=== PATIENT | male | born 1940 | race Caucasian/White ===

== ENCOUNTER 2016-09-20 07:05 | Inpatient (IN) ==
[2016-09-20] MEDS ORDERED: 0.9 % Sodium Chloride 500 ML IVC ONE ×2 (07:30→14:23)
[2016-09-20] MEDS ORDERED: *HR* Metoprolol 5 MG/5 ML VIAL IVP ONE (07:30)
--- NOTE | 2016-09-20 07:31 | Emergency Department Note ---
Disposition Clinical Impression: Atrial fibrillation with rapid ventricular response, Supratherapeutic INR Disposition: Admitted As Inpatient Condition: Good Referrals: Kevon Hussein DO [Primary Care Provider] - Forms: ED Satisfaction Letter Time of Disposition: 09:35 General Adult HPI - General Chief complaint: ED Shortness of Breath/Dyspnea Stated complaint: SOB,dizzy,fingers tingling,chills Time Seen by Provider: 09/20/16 07:11 Source: patient, family () Mode of arrival: ambulatory Limitations: no limitations Nursing Notes Reviewed: Yes Vital Signs Reviewed: Yes - History of Present Illness HPI Narrative: 76-year-old male history of atrial fibrillation on Coumadin, CABG 2006, hypertension, diabetes, hyperlipidemia presents to the ED for shortness of breath. Patient initially presented last night with for similar symptoms of lightheadedness and difficulty catching his breath. They came here to be evaluated by along the way symptoms resolved and they went home without any evaluation. Once I got home while laying in bed symptoms returned shortness of breath with diaphoresis and nausea. He denies any chest pain or pressure. Denies any racing of the heart. Denies any fever, recent illness, cough, abdominal pain. His general education instructor is Dr. Grabiel Cole. Note recent changes to medications. He takes sotalol for his atrial fibrillation. He recently needed to take magnesium for supplementation. His last INR was 2.5. Pain Scale: 0 - Related Data Home Medications Medication Instructions Recorded Confirmed Aspirin [Lo-Dose Aspirin EC] 81 mg PO DAILY 09/20/16 09/20/16 Lisinopril [Zestril] 20 mg PO DAILY 09/20/16 09/20/16 Lovastatin 40 mg PO DAILY 09/20/16 09/20/16 Magnesium Oxide [Mgo] 400 mg PO BID 09/20/16 09/20/16 Nitroglycerin [Nitrostat] 0.4 mg SL AD PRN 09/20/16 09/20/16 Ranitidine HCl [Zantac] 300 mg PO DAILY 09/20/16 09/20/16 Sotalol [Betapace] 40 mg PO BID 09/20/16 09/20/16 Warfarin [Coumadin] 2 mg PO HS 09/20/16 09/20/16 Allergies Allergy/AdvReac Type Severity Reaction Status Date / Time No Known Allergies Allergy Verified 09/20/16 07:09 All systems ED: reviewed and negative except as stated. Constitutional: Denies: fever, chills Cardiovascular: Reports: dyspnea on exertion. Denies: chest pain, palpitations Respiratory: Reports: dyspnea. Denies: cough Gastrointestinal: Reports: nausea. Denies: abdominal pain, vomiting, diarrhea Genitourinary: Denies: urgency, dysuria Musculoskeletal: Denies: back pain, neck pain Integumentary: Denies: rash, abrasion Neurological: Denies: headache, weakness, vertigo Past Medical History - Past Medical History Attestation: Yes The following information was validated with the patient. Source: patient Medical history: Reports: atrial fibrillation, coronary artery disease, diabetes , hypertension - Social History Smoking Status: Never smoker Smokeless Tobacco Status: No Alcohol use: Reports: none Drug use: Reports: none Physical Exam - General Limitations: no limitations General appearance: alert, in no apparent distress, obese - Head Head exam: atraumatic, normocephalic, normal inspection - Eye Eye exam: Present: normal appearance, PERRL, EOMI - ENT ENT exam: normal exam, normal oropharynx, mucous membranes moist - Neck Neck exam: Present: normal inspection, full ROM, trachea midline. Absent: tenderness - Chest Chest inspection: Present: normal inspection, symmetric chest wall rise. Absent : tenderness - Respiratory Respiratory exam: Present: normal lung sounds bilaterally. Absent: respiratory distress, wheezes - Cardiovascular Cardiovascular exam: Present: regular rate, normal rhythm, normal heart sounds. Absent: systolic murmur, diastolic murmur - Abdominal Exam Abdominal exam: Present: soft (obese), Non-Tender, normal bowel sounds. Absent : tenderness, distention, guarding, rebound, rigidity - Extremities Exam Extremities exam: Present: normal inspection, full ROM, pedal edema (+1 symmetrical). Absent: tenderness - Back Exam Back exam: Present: normal inspection, full ROM. Absent: tenderness - Neurological Exam Neurological exam: Present: alert, oriented X3 - Psychiatric Psychiatric exam: Present: normal affect, normal mood - Skin Skin exam: Present: warm, dry, intact, normal color Course Course Narrative: 76-year-old male presents with dyspnea. On EKG he is in atrial flutter with rapid ventricular response. His last blood pressure 101/68. Will attempt to break control with Lopressor 5 mg. Also give bolus of 500 mL normal saline. Last echo performed 08/01 had poor windows but good LV systolic function. He does not appear in no acute heart failure. Will plan to admit once rate has been controlled. Patient is in agreement with this plan. - Reevaluation(s) Reevaluation #1: After one dose of Lopressor, patient has responded well with heart rate down to 110s. He has a mild KELSEA with elevated creatinine 1.5. His INR supratherapeutic 3.4. Troponin negative. Magnesium is WNL. Other labs are unremarkable. BP remains stable 110/64 after bolus of fluids. Chest x-ray does not reveal any acute cardiopulmonary process or evidence of heart failure. Will continue to observe and likely admit to medicine. Time: 08:30 Reevaluation #2: Continues to be in atrial fibrillation with a heart rate 105. Plan to admit to medicine. Patient is in agreement with this plan. Time: 09:31 - Consultations Consultation #1: Spoke with on-call hospitalist randi Kwon to admit for atrial fibrillation c RVR and supratherapeutic INR. No further orders at this time Time: 10:05 Vital Signs Temperature 97.7 F 09/20/16 07:06 Pulse Rate 91 09/20/16 07:06 Respiratory Rate 20 09/20/16 07:06 Blood Pressure 87/57 09/20/16 07:06 O2 Sat by Pulse Oximetry 98 09/20/16 07:06 Temperature 97.7 F 09/20/16 07:06 Pulse Rate 105 09/20/16 09:27 Respiratory Rate 18 09/20/16 09:27 Blood Pressure 108/87 09/20/16 09:27 O2 Sat by Pulse Oximetry 94 09/20/16 09:27 Oxygen Delivery Oxygen Delivery Room Air Medical Decision Making - Medical Records Medical records reviewed: Yes I reviewed the patient's medical records. - Lab Data Lab results reviewed: Yes I reviewed the patient's lab results. Result diagrams: 09/20/16 07:17 09/20/16 07:17 Lab Results 09/20/16 09/20/16 09/20/16 Range/Units 07:17 07:17 07:17 WBC 9.7 (4.3-11.1) K/mcL RBC 6.01 H (4.19-5.50) M/mcL Hgb 17.9 H (12.9-16.9) g/dL Hct 52.9 H (37.5-50.1) % MCV 88.0 (83.0-100.0) fL MCH 29.8 (28.0-33.3) pg MCHC 33.8 (31.6-35.5) g/dL RDW 13.9 (11.5-14.5) % Plt Count 188 (140-400) K/mcL MPV 11.0 (9.4-12.4) fL Immature Gran % 1.3 (0-4) % Seg Neutrophils % 74.3 % Lymphocytes % 12.9 % Monocytes % 8.1 % Eosinophils % 2.7 % Basophils % 0.7 % Neutrophils # 7.2 (1.6-8.9) K/mcL Lymphocytes # 1.3 (0.6-4.6) K/mcL Monocytes # 0.8 (0.0-1.3) K/mcL Eosinophils # 0.3 (0.0-0.6) K/mcL Basophils # 0.1 (0.0-0.2) K/mcL PT (9.4-12.1) Seconds INR Sodium 135 L (136-145) mEq/L Potassium 4.5 (3.5-4.5) mEq/L Chloride 102 (98-109) mEq/L Carbon Dioxide 23 (19-29) mEq/L BUN 25 (8-26) mg/dL Creatinine 1.50 H (0.72-1.25) mg/dL Est GFR ( Amer) 55 L (> 60) Est GFR (Non-Af Amer) 46 L (> 60) BUN/Creatinine Ratio 17 (6-26) Glucose 163 H (70-99) mg/dL Calculated Osmolality 288 (280-300) Calcium 9.3 (8.6-10.8) mg/dL Magnesium 1.7 (1.6-2.6) mg/dL Troponin I 0.01 (0-0.03) ng/mL B-Natriuretic Peptide (0-100) pg/mL 09/20/16 09/20/16 Range/Units 07:17 07:17 WBC (4.3-11.1) K/mcL RBC (4.19-5.50) M/mcL Hgb (12.9-16.9) g/dL Hct (37.5-50.1) % MCV (83.0-100.0) fL MCH (28.0-33.3) pg MCHC (31.6-35.5) g/dL RDW (11.5-14.5) % Plt Count (140-400) K/mcL MPV (9.4-12.4) fL Immature Gran % (0-4) % Seg Neutrophils % % Lymphocytes % % Monocytes % % Eosinophils % % Basophils % % Neutrophils # (1.6-8.9) K/mcL Lymphocytes # (0.6-4.6) K/mcL Monocytes # (0.0-1.3) K/mcL Eosinophils # (0.0-0.6) K/mcL Basophils # (0.0-0.2) K/mcL PT 37.8 H (9.4-12.1) Seconds INR 3.4 Sodium (136-145) mEq/L Potassium (3.5-4.5) mEq/L Chloride (98-109) mEq/L Carbon Dioxide (19-29) mEq/L BUN (8-26) mg/dL Creatinine (0.72-1.25) mg/dL Est GFR ( Amer) (> 60) Est GFR (Non-Af Amer) (> 60) BUN/Creatinine Ratio (6-26) Glucose (70-99) mg/dL Calculated Osmolality (280-300) Calcium (8.6-10.8) mg/dL Magnesium (1.6-2.6) mg/dL Troponin I (0-0.03) ng/mL B-Natriuretic Peptide 120 H (0-100) pg/mL - Radiology Data Radiology results reviewed: Yes I reviewed the patient's radiology results. Chest X-Ray 09/20/16 07:18 IMPRESSION: No acute cardiopulmonary abnormality detected. D/ / Zuhair Reyes MD / Zuhair Reyes MD Interpreting Provider: Zuhair Reyes MD - EKG Data EKG #1 EKG attestation: Yes I reviewed and interpreted this EKG. EKG results narrative: EKG performed 0717 atrial flutter tachycardia with rapid ventricular response [address] depressions likely secondary to rate. Compared to old EKG performed 07/23/2016 shows sinus bradycardia 58 bpm
--- NOTE | 2016-09-20 07:41 | Emergency Department Note ---
START Narrative - START START: I examined this patient and my medical decision-making was reviewed with the PROGRAMS DIRECTOR/PA/Advanced Practice Nurse/Resident Physician. I agree with the documented findings, disposition and treatment plan as described except to the extent set forth below. ED attending note: Patient seen with emergency medicine resident Dr. ABBOTT. Please see a copy of his note for details of the H&P, evaluation, management and disposition of this patient. We independently had [id number] contact with the patient Briefly: 76-year-old male history of atrial dysrhythmias hypertension among other things presents with shortness of breath weakness and chest discomfort. Had an episode yesterday resolved in route to the hospital and turned back and went home. This morning with the symptoms. EKG shows an atrial tachydysrhythmias about 160 bpm possibly A. fib with RVR. Patient's lungs are clear heart trace edema. Patient will get troponin chemical rate control with Lopressor and chest x-ray other screening labs and admission anticipated. Provided 30 minutes of critical care services for this patient.
[2016-09-20 08:01] LABS: Calcium 9.3 mg/dL (8.6-10.8); Magnesium 1.7 mg/dL (1.6-2.6); Potassium 4.5 mEq/L (3.5-4.5)
[2016-09-20 08:02] LABS: INR 3.4; Prothrombin Time 37.8 Seconds (9.4-12.1)
[2016-09-20 08:12] LABS: Basophils # 0.1 K/mcL (0.0-0.2); Basophils % 0.7 %; Eosinophils # 0.3 K/mcL (0.0-0.6); Eosinophils % 2.7 %; Hematocrit 52.9 % (37.5-50.1); Hemoglobin 17.9 g/dL (12.9-16.9); Immature Granulocytes % 1.3 % (0-4); Lymphocytes # 1.3 K/mcL (0.6-4.6); Lymphocytes % 12.9 %; Mean Corpuscular HGB Conc 33.8 g/dL (31.6-35.5); Mean Corpuscular Hemoglobin 29.8 pg (28.0-33.3); Monocytes # 0.8 K/mcL (0.0-1.3); Monocytes % 8.1 %; Neutrophils # 7.2 K/mcL (1.6-8.9); Platelet Count 188 K/mcL (140-400); Red Blood Count 6.01 M/mcL (4.19-5.50); Red Cell Distribution Width 13.9 % (11.5-14.5); Segmented Neutrophils % 74.3 %
--- NOTE | 2016-09-20 12:52 | Electrocardiograph Report ---
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
[2016-09-20] MEDS ORDERED: Naloxone 0.4 MG/ML INJ IVP PRN (12:55)
[2016-09-20] MEDS ORDERED: Acetaminophen 325 MG TABLET PO PRN (13:00)
[2016-09-20] MEDS ORDERED: Nitroglycerin 0.4 MG TAB.SUBL SL PRN (13:02)
--- NOTE | 2016-09-20 13:07 | Internal Med History&Physical ---
Date of Encounter: 09/20/16 Time of Encounter: 13:07 Assessment and Plan (1) Atrial flutter with rapid ventricular response Current visit: Yes Status: Acute 1 patient presented with shortness of breath lightheadedness and diaphoresis. He was in atrial flutter RVR. Patient has past history A. fib A flutter he underwent a ablation in 2011 and is currently on sotalol and Coumadin. Patient was given IV fluids as well as Lopressor and Cardizem his heart rate came down to 90s. Continue cardiac monitoring 2 continue with sotalol monitor QTC presently QTC 343-EKG every a.m. 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 2 2012 [facility] with left main 95%, 20% mid circumflex, SVG to OM1 20% proximal stenosis, 20% mid RCA, SAINI to LAD patent, 3 cardiac troponins are negative we will continue to cycle 4 NT with beta roshan aspirin and statin Qualifiers: Coronary Disease-Associated Artery/Lesion type: [place] artery [place] vs. transplanted heart: [place] heart Associated angina: without angina Qualified Code(s): I25.10 - Atherosclerotic heart disease of [place] coronary artery without angina pectoris (5) DVT prophylaxis Current visit: Yes Status: Acute On Coumadin Internal Medicine - H&P: HPI Chief complaint: sob Admitted From: Emergency Dept Plans for Post Hospital Care: Home History of present illness: Mr. Shell is a 76 year old male past medical history of atrial fib atrial flutter coronary disease diabetes hypertension CABG. 4 patient last approximate LMP end he began to experience increasing shortness of breath nausea or lightheadedness. He states he was camping he decided to have his take him home once he arrived he was feeling better. This morning patient awoke and again experienced shortness of breath lightheaded nausea. He denies any chest pain or palpitations. He was taken to the hospital for evaluation. Upon arrival to the ER it was noted patient's heart rate was 160. The atrial flutter lab work did reveal some AK I1.5 his INR is 3.4 blood pressure was 87/ 57 on presentation he was given fluid bolus and 5 mg of labetalol which did slow his rate. His heart rate decreased back up and he received 20 of Cardizem IV push again bring his heart rate back down to the 90s. Chest x-ray with no acute process troponin was negative he was admitted for further workup and evaluation. Presently patient denies any chest pain shortness of breath nausea or palpitations. He is atrial flutter on the monitor ranging 90s to 100s. His lung sounds are clear heart sounds are irregular S1-S2 with no rubs clicks Murmurs Noted He Has Slight Pedal EdemaBilaterally. He Is Hemodynamically Stable This Time I Reviewed This Case with Dr. Calloway who agrees with plan. Past Med Surg Social Fam HX - Past Medical History Medical history: atrial fibrillation, coronary artery disease, diabetes, hypertension Psychiatric history: no psych history - Past Surgical History Surgical History: coronary bypass (CABG) - Social History Smoking Status: Never smoker Smokeless Tobacco Status: No Alcohol use: none Drug use: none - Family History Mother History Unknown: Yes Internal Medicine - H&P: Meds Aspirin [Lo-Dose Aspirin EC] 81 mg PO DAILY 09/20/16 [History] Lisinopril [Zestril] 20 mg PO DAILY 09/20/16 [History] Lovastatin 40 mg PO DAILY 09/20/16 [History] Magnesium Oxide [Mgo] 400 mg PO BID 09/20/16 [History] Nitroglycerin [Nitrostat] 0.4 mg SL AD PRN 09/20/16 [History] Ranitidine HCl [Zantac] 300 mg PO DAILY 09/20/16 [History] Sotalol [Betapace] 40 mg PO BID 09/20/16 [History] Warfarin [Coumadin] 2 mg PO HS 09/20/16 [History] Allergies No Known Allergies Allergy (Verified 09/20/16 07:09) All Systems PM: A 10-system review of systems was performed and is negative for pertinent findings except as documented above in the HPI. - Constitutional Constitutional: no chills, no fever(s), no night sweats - EENT Eyes: no change in vision, no discharge, no pain, no photophobia Ears: no ear discharge, no ear pain, no tinnitus Nose, mouth and throat: no dysphagia, no nasal discharge, no neck pain, no sore throat - Cardiovascular Cardiovascular ROS IM: diaphoresis, dyspnea, lightheadedness, no chest pain, no palpitations, no syncope - Respiratory Respiratory: as per HPI, dyspnea on exertion - Gastrointestinal Gastrointestinal: nausea, no abdominal pain, no diarrhea, no hematemesis, no hematochezia, no melena, no vomiting - Musculoskeletal Musculoskeletal ROS IM: no numbness, no tingling - Integumentary Integumentary IM: no rash, no unusual bruising - Neurological Neurological ROS: no confusion, no convulsions, no focal weakness, no numbness, no tingling, no tremor(s) - Hematologic/Lymphatic Hematologic/Lymphatic: no easy bruising - Constitutional Vitals: Temp Pulse Resp BP Pulse Ox 97.1 F L 97 18 121/75 94 09/20/16 10:34 09/20/16 10:34 09/20/16 10:34 09/20/16 10:34 09/20/16 10:34 General appearance: Present: A&O X 3, answers questions appropriately - Head Head exam: Present: atraumatic, normocephalic - Eye Eye exam: Present: PERRL, conjuntiva pink, sclera anicteric Pupils: Present: PERRL - Neck Neck exam general surgery: Present: supple, trachea midline. Absent: lymphadenopathy - Respiratory Respiratory exam: Present: CTAB. Absent: accessory muscle use, rales, rhonchi, wheezes - Cardiovascular Cardiovascular exam: Present: irregular rhythm, +S1, +S2. Absent: diastolic murmur, gallop, rubs, systolic murmur - GI/Abdominal GI/Abdominal exam: Present: normal bowel sounds, soft, no peritoneal signs. Absent: distended, tenderness - Extremities Exam Extremities exam: Present: pedal edema, warm, radial pulses palpable and symetrical. Absent: calf tenderness, cyanotic - Neurological Exam Neurological exam: Present: CN II-XII intact, oriented X3, no focal deficits. Absent: pronater drift, facial droop, speech deficit - Skin Skin exam: Present: dry, intact Internal Med - H&P Results - Labs CBC & Chem 7: 09/20/16 07:17 09/20/16 07:17 - EKG Data Prior EKG available for review: yes EKG comments: 09/20/16 18:06 Atrial flutter with RVR no ischemic changes - Diagnostic Studies Other Images Additional comments: Chest X-Ray 09/20/16 07:18 IMPRESSION: No acute cardiopulmonary abnormality detected. D/ / Zuhair Reyes MD / Zuhair Reyes MD Interpreting Provider: Zuhair Reyes MD
[2016-09-20] MEDS: 0.9 % Sodium Chloride 1,000 ML IVC SCH (13:36)
[2016-09-20] MEDS ORDERED: D5% in Water 1,000 ML IVC PRN (14:45)
[2016-09-20] MEDS ORDERED: Dextrose Gel 15 GM PO PRN ×2 (14:45)
[2016-09-20] MEDS ORDERED: *HR* Dextrose 50 % in Water (Syg) 50 ML SYRINGE IVP PRN (14:45)
--- NOTE | 2016-09-20 15:13 | Cardiology Consult Note ---
Date of Encounter: 09/20/16 Time of Encounter: 14:30 Assessment and Plan (1) Atrial flutter with rapid ventricular response Current Visit: Yes Status: Acute Per cardiology: -KNown atrial flutter, on sotalol. -Admitted with a.flutter RVR, HR 160 per ECG on admission. -was given IV lopressor in ER. -Patient with average HR 110. -[id number] score 3 (age, HTN, vascular disease). ON coumadin. INr supratherapuetic on admission. Coumadin beig dosed per pharmacy while inpatient. -Of note, recent holter 07/2016 with average HR 55. -Will increase sotalol to 80mg BID per discussion with Dr.John Cole. -Recommend close monitoring of HR due to history of bradycardia. -Will continue to monitor. (2) CAD (coronary artery disease) Current Visit: Yes Status: Chronic Per cardiology: -Known history of CAD with CABG x2 in 2006. -Patient denies chest pain. -Denies increased fatigue. -ECG with no ischemic changes, -Troponins negative x2. -On asa, statin, beta roshan. -2012 [facility] with left main 95%, 20% mid circumflex, SVG to OM1 20% proximal stenosis, 20% mid RCA, SAINI to LAD patent, -Will continue to monitor. Qualifiers: Coronary Disease-Associated Artery/Lesion type: [place] artery [place] vs. transplanted heart: [place] heart Associated angina: without angina Qualified Code(s): I25.10 - Atherosclerotic heart disease of [place] coronary artery without angina pectoris (3) Encounter for monitoring anti-arrhythmic therapy Current Visit: Yes Status: Acute Per cardiology: -On sotalol 40mg BID. -Here with aflutter RVR. -Will increase sotalol to 80mg BID. -QT 254, QTC 343ms. -Will continue to monitor, -ECG ordered q am. Discussion w patient/family: The assessment and plan as outlined above was discussed with the patient and/or family members who expressed understanding and agreement. All questions were answered. Thank you for involving us in the care of your patient. Please call with any questions. Discussed and reviewed with Dr.John Cole History of Present Illness Consult date: 09/20/16 Requesting physician: Hallie Rich Consult reason: a.fib RVR Chief complaint: shortness of breath History of present illness: Mr. Shell is a 76 year old male with a relevant past medical history of CAD s/ p CABG, HTN, HLD, paroxsymal atrial flutter, ablation 2011. Patient presented to [facility] for increased shortness of breath. Patient states he was diaphoretic and nauseated also. Patient denies chest pain. Denies chest palpitations/ fluttering. Patient denies current shortness of breath. Patient denies current diaphoresis and nausea. Patient has a known history of atrial fibrillation and is on sotalol and coumadin. Past Med Surg Social Fam HX - Past Medical History Attestation: Yes The following information was validated with the patient. Source: patient, old records reviewed, obtained from family Medical history: atrial fibrillation, coronary artery disease, diabetes, hypertension Psychiatric history: no psych history - Past Surgical History Surgical History: coronary bypass (CABG) - Social History Smoking Status: Never smoker Smokeless Tobacco Status: No Alcohol use: none Drug use: none - Family History Mother History Unknown: Yes Medications and Allergies Aspirin [Lo-Dose Aspirin EC] 81 mg PO DAILY 09/20/16 [History] Lisinopril [Zestril] 20 mg PO DAILY 09/20/16 [History] Lovastatin 40 mg PO DAILY 09/20/16 [History] Magnesium Oxide [Mgo] 400 mg PO BID 09/20/16 [History] Nitroglycerin [Nitrostat] 0.4 mg SL AD PRN 09/20/16 [History] Ranitidine HCl [Zantac] 300 mg PO DAILY 09/20/16 [History] Sotalol [Betapace] 40 mg PO BID 09/20/16 [History] Warfarin [Coumadin] 2 mg PO HS 09/20/16 [History] Allergies No Known Allergies Allergy (Verified 09/20/16 07:09) All Systems Review: A 10-system review of systems was performed and is negative for pertinent findings except as documented above in the HPI. - Cardiovascular Cardiovascular: as per HPI, diaphoresis, dyspnea at rest, dyspnea on exertion - Gastrointestinal Gastrointestinal: nausea Physical Examination Vital Signs Temperature 97.7 F 09/20/16 07:06 Pulse Rate 91 09/20/16 07:06 Respiratory Rate 20 09/20/16 07:06 Blood Pressure 87/57 09/20/16 07:06 O2 Sat by Pulse Oximetry 98 09/20/16 07:06 Temperature 97.1 F L 09/20/16 10:34 Pulse Rate 97 09/20/16 10:34 Respiratory Rate 18 09/20/16 10:34 Blood Pressure 121/75 09/20/16 10:34 O2 Sat by Pulse Oximetry 94 09/20/16 10:34 Oxygen Delivery Oxygen Delivery Room Air General: Conversant, No Apparent Distress HEENT: Atraumatic, Normocephaly, Mucus Membranes Moist Neck: No JVD, Normal carotid pulses Cardiac: Normal S1 and S2, No Murmur, Other (Irregularly, irregular. Tachycardic. ) Lungs: Normal Breath Sounds, No Wheeze, Rales, Rhonchi Neuro: Alert and responsive, No focal deficits noted Abdomen: Soft, Non-Tender Skin: No rashes noted on visualized skin Musculoskeletal: No Chest Wall Tenderness Extremities: No Clubbing, No Cyanosis, No Edema, Normal Pulses Results 09/20/16 07:17 09/20/16 07:17 Lab Results Impressions Chest X-Ray 09/20/16 07:18 IMPRESSION: No acute cardiopulmonary abnormality detected. D/ / Zuhair Reyes MD / Zuhair Reyes MD Interpreting Provider: Zuhair Reyes MD Active Medications Acetaminophen (Tylenol) 650 mg PO Q6HR PRN PRN Reason: Mild Pain (1-3) Stop: 03/22/17 13:01 Aspirin (Aspirin Ec) 81 mg PO DAILY KIEL Stop: 03/23/17 09:01 Dextrose/Water (Dextrose 50% (Syg)) 25 ml IVP AD PRN PRN Reason: Hypoglycemia Stop: 03/22/17 14:46 Famotidine (Pepcid) 40 mg PO DAILY KIEL Stop: 03/23/17 09:01 Glucagon (Glucagen) 1 mg IM ONCE PRN PRN Reason: Hypoglycemia Stop: 03/22/17 14:46 Glucose (Gluctose) 15 gm PO ONCE PRN PRN Reason: Hypoglycemia Stop: 03/22/17 14:46 Glucose (Gluctose) 30 gm PO ONCE PRN PRN Reason: Hypoglycemia Stop: 03/22/17 14:46 Sodium Chloride (0.9 % Sodium Chloride) 1,000 mls @ 50 mls/hr IVC .Q20H KIEL Stop: 09/21/16 13:01 Last Admin: 09/20/16 13:36 Dose: 50 mls/hr Dextrose (Dextrose 5%) 1,000 mls @ 100 mls/hr IVC .Q10H PRN PRN Reason: HYPOGLYCEMIA Stop: 03/22/17 14:46 Insulin Human Lispro (Humalog) 0 units SQ HS KIEL PRN Reason: Protocol Stop: 03/22/17 21:01 Insulin Human Lispro (Humalog) 0 units SQ TIDAC KIEL PRN Reason: Protocol Stop: 03/22/17 16:31 Magnesium Oxide (Mag-Ox) 400 mg PO BID KIEL PRN Reason: Protocol Stop: 03/22/17 21:01 Naloxone HCl (Narcan) 0.4 mg IVP Q2MIN PRN PRN Reason: Opioid Reversal Stop: 03/22/17 12:56 Nitroglycerin (Nitroglycerin) 0.4 mg SL AD PRN PRN Reason: Chest Pain Stop: 03/22/17 13:03 Simvastatin (Zocor) 20 mg PO HS [facility] Stop: 03/23/17 09:01 Sotalol HCl (Betapace) 80 mg PO Q12HR [facility] Stop: 03/22/17 18:01 Warfarin Sodium (Coumadin Perpt) 1 each PO DAILY@1800 PRN PRN Reason: SEE COMMENTS Stop: 03/22/17 18:01 Laboratory Tests 01/12/15 07/23/16 08/12/16 10:24 09:34 10:34 Hgb INR Potassium Creatinine 1.20 1.17 1.13 Magnesium Troponin I 09/20/16 09/20/16 09/20/16 07:17 07:17 07:17 Hgb 17.9 H INR Potassium 4.5 Creatinine 1.50 H Magnesium 1.7 Troponin I 0.01 09/20/16 09/20/16 07:17 13:35 Hgb INR 3.4 Potassium Creatinine Magnesium Troponin I 0.01 - Imaging and Cardiology Chest Xray: report reviewed Echo: report reviewed Holter: report reviewed - EKG Interpretation EKG results cardiology: personally reviewed (ECG reviewed with atrial flutter, HR 160.), other (Telemetry reviewed with average HR 110, atrial flutter. PVCs and 1 triplet PVC noted.) Consult Discharge Plan - Plan Referrals: Kevon Hussein DO [Primary Care Provider] - 10/01/16 8:15 am (please follow up as schedule....)
[2016-09-20] MEDS: Insulin LISPRO 300 UNITS/3 ML VIAL SQ SCH ×2 (17:09→21:56)
--- NOTE | 2016-09-20 17:54 | Event Note ---
Date of Encounter: 09/20/16 Time of Encounter: 14:52 I examined this patient and my medical decision-making was reviewed with the BIOLOGY INTERN/PA/Advanced Practice Nurse/Resident Physician. I agree with the documented findings, disposition and treatment plan as described except to the extent set forth below. patient presented to the hospital with chest presure. He was found to be in atrial fibrillation with rapid ventricular response with heart rates of 160. Currently on Cardizem drip. Heart auscultation reveals a regular S1-S2 with no murmurs. We will give 1 dose of IV Cardizem. Follow-up with cardiology. Continue with sotalol per cardiology.
[2016-09-20] MEDS ORDERED: Warfarin perPT PO PRN (18:00)
[2016-09-20] MEDS ORDERED: *HR* Warfarin 2 MG TABLET PO SCH (21:00)
[2016-09-20] MEDS: Magnesium Oxide 400 MG TABLET PO SCH (21:59)
[2016-09-21 06:55] LABS: Basophils % 0.6 %; Eosinophils # 0.2 K/mcL (0.0-0.6); Eosinophils % 3.3 %; Hematocrit 45.2 % (37.5-50.1); Lymphocytes # 0.9 K/mcL (0.6-4.6); Lymphocytes % 14.1 %; Mean Corpuscular HGB Conc 34.1 g/dL (31.6-35.5); Mean Corpuscular Hemoglobin 30.3 pg (28.0-33.3); Mean Corpuscular Volume 88.8 fL (83.0-100.0); Mean Platelet Volume 10.8 fL (9.4-12.4); Monocytes # 0.6 K/mcL (0.0-1.3); Monocytes % 10.2 %; Neutrophils # 4.5 K/mcL (1.6-8.9); Platelet Count 144 K/mcL (140-400); Red Blood Count 5.09 M/mcL (4.19-5.50); Segmented Neutrophils % 70.8 %
[2016-09-21 07:00] LABS: BUN/Creatinine Ratio 20 (6-26); Blood Urea Nitrogen 21 mg/dL (8-26); Calcium 8.5 mg/dL (8.6-10.8); Carbon Dioxide 20 mEq/L (19-29); Chloride 106 mEq/L (98-109); Glucose 136 mg/dL (70-99); Magnesium 1.5 mg/dL (1.6-2.6); Osmolality,Calculated 285 (280-300); Potassium 3.9 mEq/L (3.5-4.5); Sodium 135 mEq/L (136-145); eGFR For African Americans > 60 (> 60); eGFR For Non-African Americans > 60 (> 60)
[2016-09-21 07:25] LABS: Hemoglobin 15.4 g/dL (12.9-16.9)
--- NOTE | 2016-09-21 09:17 | Cardiology Progress Note ---
Date of Encounter: 09/21/16 Time of Encounter: 09:14 Assessment and Plan (1) Atrial flutter with rapid ventricular response Current Visit: Yes Status: Acute Per cardiology: -Known atrial flutter, on sotalol. -Admitted with a.flutter RVR, HR 160 per ECG on admission. -was given IV lopressor in ER. -Sotalol increased yesterday to 80 mg BID. -Avg HR 75 BPM overnight. Converted to NSR. Frequent PAC seen. -Continue to monitor for 24 hours. Daily EKG. -[id number] score 3 (age, HTN, vascular disease). ON coumadin. INR supratherapuetic on admission. Coumadin being dosed per pharmacy while inpatient. -Of note, recent holter 07/2016 with average HR 55. (2) CAD (coronary artery disease) Current Visit: Yes Status: Chronic Per cardiology: -Known history of CAD with CABG x2 in 2006. -Patient denies chest pain. -ECG with no ischemic changes, -Troponins negative x2. -On asa, statin, beta roshan. -2012 [facility] with left main 95%, 20% mid circumflex, SVG to OM1 20% proximal stenosis, 20% mid RCA, SAINI to LAD patent, -Will continue to monitor. Qualifiers: Coronary Disease-Associated Artery/Lesion type: [place] artery [place] vs. transplanted heart: [place] heart Associated angina: without angina Qualified Code(s): I25.10 - Atherosclerotic heart disease of [place] coronary artery without angina pectoris Discussion w patient/family: The assessment and plan as outlined above was discussed with the patient and/or family members who expressed understanding and agreement. All questions were answered. Thank you for involving us in the care of your patient. Please call with any questions. Subjective Principal diagnosis: Atrial fibrillation Interval history: Reports he is feeling better. Denies chest pain. C/o mild edema in BLE. Objective Vital Signs, Last 4 Hours Temp Pulse Resp BP Pulse Ox 09/21/16 07:00 98.2 F 60 16 129/73 96 General: Conversant, No Apparent Distress HEENT: Atraumatic, Normocephaly, Mucus Membranes Moist Neck: No JVD, Normal carotid pulses Cardiac: Reg Rate and Rhythm, Normal S1 and S2, No Murmur Lungs: Normal Breath Sounds, No Wheeze, Rales, Rhonchi Neuro: Alert and responsive, No focal deficits noted Abdomen: Soft, Non-Tender Skin: No rashes noted on visualized skin Musculoskeletal: No Chest Wall Tenderness Extremities: No Clubbing, No Cyanosis, Normal Pulses, Other (1+ ankle edema bilat.) Results 09/21/16 06:05 09/21/16 06:05 Lab Results 09/20/16 09/20/16 09/21/16 13:35 18:58 06:05 WBC 6.3 Hgb 15.4 D Hct 45.2 Plt Count 144 Sodium Potassium Chloride Carbon Dioxide BUN Creatinine Glucose Calcium Magnesium Troponin I 0.01 0.01 09/21/16 06:05 WBC Hgb Hct Plt Count Sodium 135 L Potassium 3.9 Chloride 106 Carbon Dioxide 20 BUN 21 Creatinine 1.03 Glucose 136 H Calcium 8.5 L Magnesium 1.5 L Troponin I - EKG Interpretation EKG results cardiology: other (24 hour telemetry review shows NSr. AVg HR 75 bpm.) - VTE Documentation of Mechanical Device: Graduated compression elastic hosiery Consult Discharge Plan - Plan Referrals: Kevon Hussein DO [Primary Care Provider] - 10/01/16 8:15 am (please follow up as schedule....)
[2016-09-21] MEDS: Insulin LISPRO 300 UNITS/3 ML VIAL SQ SCH ×4 (09:24→20:58)
[2016-09-21] MEDS: Magnesium Oxide 400 MG TABLET PO SCH ×2 (09:28→20:57)
[2016-09-21] MEDS: Famotidine 20 MG TABLET PO SCH (09:28)
[2016-09-21] MEDS: Aspirin Enteric Coated 81 MG Tablet PO SCH (09:28)
[2016-09-21] MEDS: 0.9 % Sodium Chloride 1,000 ML IVC SCH (09:29)
--- NOTE | 2016-09-21 11:12 | Internal Med Progress Note ---
Date of Encounter: 09/21/16 Time of Encounter: 11:10 - Assessment and plan (1) Atrial fibrillation with rapid ventricular response Current Visit: Yes Status: Acute Assessment and plan: Patient has history of atrial fibrillation, noted to be on sotalol at home. Patient's heart rate improved with a dose of IV Cardizem and metoprolol in the emergency room. Cardiology consult noted, recommend increasing sotalol to 80 mg twice daily. Continue to monitor telemetry and daily EKGs for QT intervals. Continue long-term anti-coagulation with Coumadin, INR noted to be 3.4 today. (2) CAD (coronary artery disease) Current Visit: Yes Status: Chronic Qualifiers: Coronary Disease-Associated Artery/Lesion type: [place] artery [place] vs. transplanted heart: [place] heart Associated angina: without angina Qualified Code(s): I25.10 - Atherosclerotic heart disease of [place] coronary artery without angina pectoris (3) Diabetes mellitus Current Visit: Yes Status: Chronic Assessment and plan: Accu-Chek blood glucose monitoring with sliding scale insulin. Diabetic diet. Qualifiers: Diabetes mellitus type: type 2 Diabetes mellitus complication status: without complication Diabetes mellitus termite control service representative insulin use: without termite control service representative use Qualified Code(s): E11.9 - Type 2 diabetes mellitus without complications - Subjective Interval history: Feels better; no chest pain, dyspnea, palpitations, dizziness today; - Constitutional Vitals: Temp Pulse Resp BP Pulse Ox 98.2 F 60 16 129/73 96 09/21/16 07:00 09/21/16 07:00 09/21/16 07:00 09/21/16 07:00 09/21/16 07:00 General appearance: Present: A&O X 3, answers questions appropriately - Respiratory Respiratory exam: Present: CTAB. Absent: accessory muscle use, rales, rhonchi, wheezes - Cardiovascular Cardiovascular exam: Present: RRR, +S1, +S2. Absent: diastolic murmur, gallop, rubs, systolic murmur - GI/Abdominal GI/Abdominal exam: Present: normal bowel sounds, soft, no peritoneal signs. Absent: distended, tenderness - Extremities Exam Extremities exam: Present: pedal edema, warm, radial pulses palpable and symetrical. Absent: calf tenderness, cyanotic Internal Medicine: Result - Labs CBC & Chem 7: 09/21/16 06:05 09/21/16 06:05 Labs: Short CBC 09/21/16 Range/Units 06:05 WBC 6.3 (4.3-11.1) K/mcL Hgb 15.4 D (12.9-16.9) g/dL Hct 45.2 (37.5-50.1) % Plt Count 144 (140-400) K/mcL Neutrophils # 4.5 (1.6-8.9) K/mcL BMP 09/21/16 06:05 Sodium 135 L Potassium 3.9 Chloride 106 Carbon Dioxide 20 BUN 21 Creatinine 1.03 Glucose 136 H Calcium 8.5 L Cardiac Enzymes 09/20/16 09/20/16 Range/Units 13:35 18:58 Troponin I 0.01 0.01 (0-0.03) ng/mL - ABG Interpretation ABG results: PT/INR, D-dimer PT 37.8 Seconds (9.4-12.1) H 09/20/16 07:17 - VTE Documentation of Mechanical Device: Graduated compression elastic hosiery Consult Discharge Plan - Plan Referrals: Kevon Hussein DO [Primary Care Provider] - 10/01/16 8:15 am (please follow up as schedule....)
[2016-09-21] MEDS: *HR* Warfarin 1 MG TABLET PO SCH (17:53)
[2016-09-22 03:41] LABS: INR 2.8; Prothrombin Time 31.5 Seconds (9.4-12.1)
[2016-09-22] MEDS ORDERED: *HR* Digoxin 0.5 MG/2 ML AMPUL IVP ONE (06:45)
[2016-09-22] MEDS: Insulin LISPRO 300 UNITS/3 ML VIAL SQ SCH ×4 (08:31→22:00)
[2016-09-22] MEDS: Magnesium Oxide 400 MG TABLET PO SCH ×2 (08:32→21:13)
[2016-09-22] MEDS: Famotidine 20 MG TABLET PO SCH (08:32)
[2016-09-22] MEDS: Aspirin Enteric Coated 81 MG Tablet PO SCH (08:32)
--- NOTE | 2016-09-22 12:02 | Cardiology Progress Note ---
Date of Encounter: 09/22/16 Time of Encounter: 11:58 Assessment and Plan (1) Atrial flutter with rapid ventricular response Current Visit: Yes Status: Acute Per cardiology: -Known atrial flutter, on sotalol. -Admitted with a.flutter RVR, HR 160 per ECG on admission. -was given IV lopressor in ER. -Sotalol increased 09/20/16 to 80 mg BID. Initially converted to NSR. Converted back to atrial flutter with RVR las Night. QTc remians normal. EKG 09/21/16 HR 56 bpm, QT/QTc 419/410. Discussed with Dr. Cole, increase sotalol to 120 mg BID and continue to monitor. Daily EKG. EKG ordered for today. [id number] score 3 (age, HTN, vascular disease). ON coumadin. INR supratherapuetic on admission. Coumadin being dosed per pharmacy while inpatient. INR 2.8 today. (2) CAD (coronary artery disease) Current Visit: Yes Status: Chronic Per cardiology: -Known history of CAD with CABG x2 in 2006. -Patient denies chest pain. -ECG with no ischemic changes, -Troponins negative x2. -On asa, statin, beta roshan. -2012 [facility] with left main 95%, 20% mid circumflex, SVG to OM1 20% proximal stenosis, 20% mid RCA, SAINI to LAD patent, -Will continue to monitor. Qualifiers: Coronary Disease-Associated Artery/Lesion type: [place] artery [place] vs. transplanted heart: [place] heart Associated angina: without angina Qualified Code(s): I25.10 - Atherosclerotic heart disease of [place] coronary artery without angina pectoris Discussion w patient/family: The assessment and plan as outlined above was discussed with the patient and/or family members who expressed understanding and agreement. All questions were answered. Thank you for involving us in the care of your patient. Please call with any questions. Subjective Principal diagnosis: Atrial fibrillation Interval history: Recurrent atrial flutter overnight. He denies symptoms. Objective Vital Signs, Last 4 Hours Temp Pulse Resp BP Pulse Ox 09/22/16 10:45 97.6 F 89 16 109/65 93 09/22/16 08:35 94 General: Conversant, No Apparent Distress HEENT: Atraumatic, Normocephaly, Mucus Membranes Moist Neck: No JVD, Normal carotid pulses Cardiac: Other (Irregularly irregular) Lungs: Normal Breath Sounds, No Wheeze, Rales, Rhonchi Neuro: Alert and responsive, No focal deficits noted Abdomen: Soft, Non-Tender Skin: No rashes noted on visualized skin Musculoskeletal: No Chest Wall Tenderness Extremities: No Clubbing, No Cyanosis, Normal Pulses, Other (trace ankle edema) Results 09/21/16 06:05 09/21/16 06:05 Lab Results 09/22/16 02:55 INR 2.8 - EKG Interpretation EKG results cardiology: personally reviewed, other (24 hour telemetry review completed.) - VTE Documentation of Mechanical Device: Graduated compression elastic hosiery Consult Discharge Plan - Plan Referrals: Kevon Hussein DO [Primary Care Provider] - 10/01/16 8:15 am (please follow up as schedule....)
--- NOTE | 2016-09-22 12:44 | Internal Med Progress Note ---
Date of Encounter: 09/22/16 Time of Encounter: 12:43 - Assessment and plan (1) Atrial fibrillation with rapid ventricular response Current Visit: Yes Status: Acute Assessment and plan: Patient has history of atrial fibrillation, noted to be on sotalol at home. Cardiology follow-up noted sotalol is further being increased to 120 mg twice daily. Noted to have converted back to atrial flutter with an episode of RVR overnight. Plan to monitor telemetry and repeat EKG in a.m. with increased sotalol dosing. Continue long-term anti-coagulation with Coumadin, INR noted to be 2.8 today. (2) CAD (coronary artery disease) Current Visit: Yes Status: Chronic Qualifiers: Coronary Disease-Associated Artery/Lesion type: [place] artery [place] vs. transplanted heart: [place] heart Associated angina: without angina Qualified Code(s): I25.10 - Atherosclerotic heart disease of [place] coronary artery without angina pectoris (3) Diabetes mellitus Current Visit: Yes Status: Chronic Assessment and plan: Accu-Chek blood glucose monitoring with sliding scale insulin. Diabetic diet. Qualifiers: Diabetes mellitus type: type 2 Diabetes mellitus complication status: without complication Diabetes mellitus fdc insulin use: without watermaster use Qualified Code(s): E11.9 - Type 2 diabetes mellitus without complications - Subjective Interval history: Feels better; no chest pain, dyspnea, palpitations, dizziness today; noted to have RVR and relapse of atrial flutter last night; - Constitutional Vitals: Temp Pulse Resp BP Pulse Ox 97.6 F 89 16 109/65 93 09/22/16 10:45 09/22/16 10:45 09/22/16 10:45 09/22/16 10:45 09/22/16 10:45 General appearance: Present: A&O X 3, answers questions appropriately - Respiratory Respiratory exam: Present: CTAB. Absent: accessory muscle use, rales, rhonchi, wheezes - Cardiovascular Cardiovascular exam: Present: RRR, +S1, +S2. Absent: diastolic murmur, gallop, rubs, systolic murmur - GI/Abdominal GI/Abdominal exam: Present: normal bowel sounds, soft, no peritoneal signs. Absent: distended, tenderness Internal Medicine: Result - Labs CBC & Chem 7: 09/21/16 06:05 09/21/16 06:05 - ABG Interpretation ABG results: PT/INR, D-dimer PT 31.5 Seconds (9.4-12.1) H 09/22/16 02:55 - VTE Documentation of Mechanical Device: Graduated compression elastic hosiery Consult Discharge Plan - Plan Referrals: Kevon Hussein DO [Primary Care Provider] - 10/01/16 8:15 am (please follow up as schedule....)
[2016-09-22] MEDS: *HR* Warfarin 1 MG TABLET PO SCH (16:30)
[2016-09-23 04:40] LABS: INR 2.6; Prothrombin Time 29.4 Seconds (9.4-12.1)
[2016-09-23] MEDS: Insulin LISPRO 300 UNITS/3 ML VIAL SQ SCH ×2 (07:45→11:25)
[2016-09-23] MEDS: Magnesium Oxide 400 MG TABLET PO SCH (08:07)
[2016-09-23] MEDS: Aspirin Enteric Coated 81 MG Tablet PO SCH (08:07)
[2016-09-23] MEDS: Famotidine 20 MG TABLET PO SCH (08:07)
[2016-09-23 11:00] VITALS: BP 119/66
--- NOTE | 2016-09-23 12:35 | Discharge Summary ---
Date of Encounter: 09/23/16 Time of Encounter: 12:32 - Discharge Diagnosis (1) Atrial fibrillation with rapid ventricular response Priority: Primary Status: Acute (2) CAD (coronary artery disease) Priority: Secondary Status: Chronic Qualifiers: Coronary Disease-Associated Artery/Lesion type: [place] artery [place] vs. transplanted heart: [place] heart Associated angina: without angina Qualified Code(s): I25.10 - Atherosclerotic heart disease of [place] coronary artery without angina pectoris (3) Diabetes mellitus Priority: Secondary Status: Chronic Qualifiers: Diabetes mellitus type: type 2 Diabetes mellitus complication status: without complication Diabetes mellitus exterminator insulin use: without exterminator use Qualified Code(s): E11.9 - Type 2 diabetes mellitus without complications - Discharge Medications Prescriptions: Sotalol [Betapace] 120 mg PO Q12H #60 tablet Home Medications: Aspirin [Lo-Dose Aspirin EC] 81 mg PO DAILY 09/20/16 [History] Lisinopril [Zestril] 20 mg PO DAILY 09/20/16 [History] Lovastatin 40 mg PO DAILY 09/20/16 [History] Magnesium Oxide [Mgo] 400 mg PO BID 09/20/16 [History] Nitroglycerin [Nitrostat] 0.4 mg SL AD PRN 09/20/16 [History] Ranitidine HCl [Zantac] 300 mg PO DAILY 09/20/16 [History] Warfarin [Coumadin] 2 mg PO HS 09/20/16 [History] Sotalol [Betapace] 120 mg PO Q12H #60 tablet 09/23/16 [Rx] Allergies/Adverse Reactions: Allergies No Known Allergies Allergy (Verified 09/20/16 07:09) Procedures/tests Complete & Pending: Procedures Performed prior 72 hours Category Date Time Status EKG [ECG 12 lead ECG] [ECG] Stat Y 09/23/16 08:54 Ordered Date of admission: 09/21/16 17:41 Primary care physician: Kevon Hussein, Discharging clinician: Opal Neri Anticipated date of discharge: 09/23/16 - Patient Status Disposition: Home, Self-Care Condition: Good Functional capacity at discharge: independent ambulation Overall status at discharge: patient is progressing back to baseline - Discharge Instructions Instructions: Warfarin (By mouth), Sotalol (By mouth), Coronary Artery Disease (DC), Atrial Fibrillation (DC), Elevated INR (DC) Follow Up With: Jorden Farrell, BRUSHER TENDER [Advanced Practice Nurse] - (Cardio will call patient.) Kevon Hussein DO [Primary Care Provider] - 10/01/16 8:15 am (please follow up as schedule....) Additional Instructions: F/up with [facility] in 2-3 weeks - Diet and Activity Activity: resume usual activities as tolerated Diet: diabetic diet, low fat, low cholesterol, low salt diet Hospital course: Mr. Shell is a 76 year old male with history of atrial fibrillation who was admitted with palpitations, chest pain and dyspnea. He was noted to have atrial flutter with rapid ventricular response in the emergency room and received 1 dose of IV metoprolol and IV Cardizem each, with improvement in heart rate. Patient is noted to be on 40 mg twice daily oral sotalol at home. Cardiology was consulted and recommended uptitrating sotalol and patient is currently stable on 120 mg twice daily, he is noted to have converted to sinus rhythm with stable QT interval on today's EKG. He is noted to have resting bradycardia as low as in mid 40s however his heart rate does increase to 70s and 80s upon ambulation. This has been discussed with cardiology and patient is medically stable for discharge with close outpatient follow-up. - Time Spent with Patient Total time spent providing and/or coordinating discharge services: Greater than 30 minutes (45 min) - Constitutional Vitals: Temp Pulse Resp BP Pulse Ox 97.4 F L 62 16 119/66 96 09/23/16 07:03 09/23/16 12:31 09/23/16 10:55 09/23/16 10:55 09/23/16 10:55 General appearance: Present: A&O X 3, answers questions appropriately - Cardiovascular Cardiovascular exam: Present: RRR, +S1, +S2. Absent: diastolic murmur, gallop, rubs, systolic murmur - VTE Documentation of Mechanical Device: Graduated compression elastic hosiery
--- NOTE | 2016-09-23 12:50 | Cardiology Progress Note ---
Date of Encounter: 09/23/16 Time of Encounter: 12:35 Assessment and Plan (1) Atrial flutter with rapid ventricular response Status: Acute Per cardiology: -Known atrial flutter, on sotalol. -Admitted with a.flutter RVR, HR 160 per ECG on admission. -was given IV lopressor in ER. -Sotalol increased 09/20/16 to 80 mg BID. Initially converted to NSR. Converted back to atrial flutter with RVR 09/21/16 and sotalol increased to 120 mg BID yesterday. He converted to sinus bradycardia , sinus rhythm overnight . Avg HR over last 12 hours was 69 bpm. HR seen frequently in the 40's during nocturnal hours. HR now 50-60's He walked in hallway without dizziness or lightheadedness. Appropriate increase in HR seen. EKG 09/21/16 HR 56 bpm SB, QT/QTc 419/410. EKG 09/22/16 HR 83 atrial flutter, QT/QTc 355/395 EKG 09/23/16 HR 56 bpm SB, Qt/QTc 438/430 [id number] score 3 (age, HTN, vascular disease). ON coumadin. INR supratherapuetic on admission. Coumadin being dosed per pharmacy while inpatient. INR 2.6 today. Out patient f/u will be coordinated by [facility]. Cardiology will sign off. Ok for discharge if he is asymptomatic when he walks. (2) CAD (coronary artery disease) Status: Chronic Per cardiology: -Known history of CAD with CABG x2 in 2006. -Patient denies chest pain. -ECG with no ischemic changes, -Troponins negative x2. -On asa, statin, beta roshan. -2012 [facility] with left main 95%, 20% mid circumflex, SVG to OM1 20% proximal stenosis, 20% mid RCA, SAINI to LAD patent, -Will continue to monitor. Qualifiers: Coronary Disease-Associated Artery/Lesion type: [place] artery [place] vs. transplanted heart: [place] heart Associated angina: without angina Qualified Code(s): I25.10 - Atherosclerotic heart disease of [place] coronary artery without angina pectoris Discussion w patient/family: The assessment and plan as outlined above was discussed with the patient and/or family members who expressed understanding and agreement. All questions were answered. Thank you for involving us in the care of your patient. Please call with any questions. Subjective Principal diagnosis: Atrial fibrillation Interval history: Recurrent atrial flutter overnight. He denies symptoms. Objective Vital Signs, Last 4 Hours Pulse Resp BP Pulse Ox 09/23/16 12:31 62 09/23/16 10:55 58 16 119/66 96 Results 09/21/16 06:05 09/21/16 06:05 Lab Results 09/23/16 04:19 INR 2.6 - VTE Documentation of Mechanical Device: Graduated compression elastic hosiery Consult Discharge Plan - Plan Instructions: Warfarin (By mouth), Sotalol (By mouth), Coronary Artery Disease (DC), Atrial Fibrillation (DC), Elevated INR (DC) Additional Instructions: F/up with [facility] in 2-3 weeks Referrals: Jorden Farrell CNP [Advanced Practice Nurse] - (Cardio will call patient.) Kevon Hussein DO [Primary Care Provider] - 10/01/16 8:15 am (please follow up as schedule....) Prescriptions: Sotalol [Betapace] 120 mg PO Q12H #60 tablet
--- NOTE | 2016-09-23 16:37 | Electrocardiograph Report ---
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
--- NOTE | 2016-09-23 17:51 | Electrocardiograph Report ---
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
[2016-09-23] MEDS ORDERED: *HR* Warfarin 2 MG TABLET PO ONE (18:00)
--- NOTE | 2016-09-24 18:55 | Electrocardiograph Report ---
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
== END 2016-09-23 12:52 | disposition home or self-care (01) | DRG 309 ==
LOC: 2ANU 07:05 → EMEROO 07:05 → 2ANU 10:28
PROVIDERS: ADMIT Internal Medicine; ATTEND Internal Medicine